=== PATIENT | male | born 1940 | race Asian ===

== ENCOUNTER → 2018-04-05 | Day surgery (SDC) | payer MEDICARE ==
[~2018-04-05] VITALS: Ht 175.3 cm; Wt 91.6 kg
[~2018-04-05] MED LIST: ACETAMINOPHEN 325MG TABLET PO PRN; ASPIRIN/SOD BICARB/CITRIC ACID 324MG TAB EFF ONE; ATROPINE SULFATE 1MG/10ML SYR IV PRN; FENTANYL CITRATE/PF 50MCG/ML 2ML VIAL ONE; HEPARIN SODIUM 1,000 UNIT/1ML VIAL IV ONE; IODIXANOL 320MG/ML 100 ML BOTTLE IV ONE; LIDOCAINE HCL 1% 20ML VIAL (Pyxis) INJ ONE; MIDAZOLAM HCL 2 MG/2 ML VIAL ONE; MORPHINE SULFATE 4 MG/ML CPJ (NOT FOR IM USE) IV PRN; ONDANSETRON HCL 4MG/2ML INJ IV PRN; SODIUM CHLORIDE 0.45% 1,000 ML IV SCH
== END | disposition home or self-care (01) ==
LOC: CCL 07:41
PROVIDERS: ATTEND Specialist
DX: I25.119 Atherosclerotic heart disease of native coronary artery with unspecified angina pectoris (principal); E78.00 Pure hypercholesterolemia, unspecified; I82.409 Acute embolism and thrombosis of unspecified deep veins of unspecified lower extremity; N40.0 Benign prostatic hyperplasia without lower urinary tract symptoms
CPT/HCPCS: 93005; 93458; 99152; 99153; C1769; C1893; J1644; J2250; J3010; J3490; Q9967; G0500